=== PATIENT | female | born 1965 | race African-American/Black ===

== ENCOUNTER 2016-07-03 08:58 | Emergency (ER) ==
[2016-07-03 09:10] VITALS: BP 142/72
--- NOTE | 2016-07-03 09:57 | PROVIDER DOCUMENTATION ---
HPI-Abdominal Pain/GI Problem - General Source: patient - History of Present Illness-ABD Nature of Presenting Problems: Pt is 50 y/o F presents to the ED with rectal bleeding. Pt states bleeding has been present for one month intermittently, but today Pt states was bleeding like a period. Pt states blood with stool and without. Pt denies F. Pt states hx of hemorrhoids. Abdominal Pain Onset Location: denies: RUQ, LUQ, RLQ, LLQ, epigastric, periumbilical, suprapubic, generalized abdomen, flank, unknown Pain Radiation: reports: no radiation Quality of Pain: reports: none Onset/Duration: reports: other (1 mth) Timing: reports: still present, intermittent Activities at Onset: reports: light activity Exposure to sick contacts?: No Modifying Factors: improves with: nothing Associated Symptoms: denies: anxiety, arm pain, back/neck pain, chest pain, constipation, cough, diaphoresis, diarrhea, dizziness, EENT symptoms, fatigue, fever/chills, genitourinary problems, headaches, heartburn, joint pain, loss of appetite, malaise, muscle aches, sinus congestion/drainage, nausea, rash, seizure, shortness of breath, sensory/motor loss, pain with inspiration, swelling/mass in abdomen, syncope, vomiting, weakness, trouble walking Last BM: this morning Dark Stools Present?: reports: bright red blood Rectal Bleeding: reports: bleeding without stool, blood streaks on stool Rectal Pain: reports: none Emesis Description: reports: none Bruising or Bleeding Gums?: No Similar Symptoms Previously?: Yes Recently seen or treated by another doctor?: No <Terra Brady - Last Filed: 07/03/16 12:01> <Klaus Marte - Last Filed: 07/03/16 12:04> - General Chief Complaint: Rectal Bleeding Stated Complaint: RECTAL BLEEDING Time Seen by Provider: 07/03/16 09:55 Allergies/Adverse Reactions: Patient Allergies Allergy/AdvReac Type Severity Reaction Status Date / Time No Known Allergies Allergy Verified 07/03/16 09:09 Home Medications: Home Medication List Medication Instructions Recorded Confirmed Last Taken Type Amlodipine Besylate [Norvasc] 10 mg PO QPM #30 tablet 07/16/15 07/03/16 Unknown Rx Lisinopril/Hydrochlorothiazide 1 each PO QAM #30 tablet 07/16/15 07/03/16 Unknown Rx [Lisinopril-Hctz 20-12.5 mg Tab] Hydrocortisone Supp [Anusol-Hc 25 mg PA BID #14 supp 07/03/16 Unknown Rx Supp] Review of Systems - Adult - REVIEW OF SYSTEMS - ADULT Constitutional: denies: chills, fever Eyes: denies: blurred vision, double vision Ears, Nose, Mouth & Throat: denies: ear pain, nose pain, throat pain Cardiovascular: reports: irregular heart rate (nikolai). denies: chest pain, heart murmur Respiratory: denies: cough, shortness of breath, wheezing Gastrointestinal: reports: rectal bleeding. denies: abdominal pain, diarrhea, nausea, vomiting Genitourinary: denies: dysuria, hematuria Musculoskeletal: denies: bone pain, joint pain, neck pain Integumentary: denies: hives, itching Neurological: denies: dizziness/vertigo, headache/migraines Psychiatric: reports: no symptoms reported Endocrine: reports: no symptoms reported Hematologic/Lymphatic: reports: no symptoms reported Allergic/Immunologic: reports: no symptoms reported All Other Systems: Reviewed and Negative <Terra Brady - Last Filed: 07/03/16 12:01> Past History - Adult - PAST MEDICAL HISTORY-ADULT Review of Records: reports: Nursing Assessment Review, Medications Reviewed, Social history reviewed & non-contributory. Major Childhood Illnesses: reports: denies history Cardiovascular: reports: HTN Respiratory: reports: denies history Gastrointestinal: reports: GERD Obstetrical/Gynecological: reports: denies history Genitourinary: reports: denies history Musculoskeletal: reports: denies history Neurological: reports: denies history Psychiatric: reports: denies history Endocrine/Immune: reports: denies history Other Conditions: reports: denies history - PRIOR SURGERIES/PROCEDURES Surgical/Procedure History: reports: hysterectomy - PRIOR HOSPITALIZATIONS Prior Hospitalizations: reports: none - IMMUNIZATION STATUS Childhood Immunizations: See Nurse Assessment Flu Vaccine: See Nurse Assessment - FAMILY HISTORY Family History: reviewed, not pertinent - SOCIAL HISTORY Smoking: cigarettes, less than 1 pack/day Provider spent 3-5 mins advising pt. on dangers of tobacco.: Discussed manners to quit use, and f/u contacts for add'l counseling. Substance Use: denies Living Situation: family <Jose Antonio,Terra - Last Filed: 07/03/16 12:01> Physical Exam-General - PHYSICAL EXAM-ADULT Initial Vital Signs Reviewed: Yes - CONSTITUTIONAL General Appearance: appears well, alert, no apparent distress - EYES Eyes: PERRL/EOMI, pink conjunctivae, fundi clear, no AV nicking - HEAD, EARS, NOSE, MOUTH & THROAT HENMT: normocephalic/atraumatic, moist mucous membranes, normal ENT inspection, TMs normal, pharynx normal - NECK Neck: non-tender, full range of motion, supple, normal inspection - RESPIRATORY Respiratory: chest non-tender, lungs clear, normal breath sounds, no pleuratic chest pain, no respiratory distress - CARDIOVASCULAR Cardiovascular: normal peripheral pulses, no edema, no gallop, no JVD, no murmur , bradycardia - GASTROINTESTINAL (ABDOMEN) Abdominal Exam: normal bowel sounds, non tender, soft, no organomegaly, no pulsatile mass - GENITOURINARY Female Genitalia/Pelvic Exam: deferred Rectal Exam: normal rectal tone, blood streaked stool, hemorrhoids (external). negative: mass, tenderness - LYMPHATIC Lymphatic: no adenopathy - MUSCULOSKELETAL Back Exam: normal inspection, no CVA tenderness, no vertebral tenderness Extremity: normal range of motion, non-tender, normal gait, normal inspection, no pedal edema, no calf tenderness, normal capillary refill - SKIN Integumentary: normal color, normal turgor, warm/dry - NEUROLOGIC Neurologic: grossly normal - PSYCHIATRIC Psych/Mental Status: normal mood/affect, oriented x 3 <Terra Brady - Last Filed: 07/03/16 12:01> Progress - PLAN OF CARE/RESULTS Progress/Plan/Lab Results: Orders Category Date Time Status CBC WITH DIFF [HEME] Stat Lab 07/03/16 09:58 Ordered COMPREHENSIVE METABOLIC PANEL [CHEM] Stat Lab 07/03/16 09:58 Ordered OCCULT BLOOD SCREEN STOOL PL Stat Lab 07/03/16 10:02 Ordered UA [URINALYSIS DIPSTICK ONLY PL] [URINALYSIS] Stat Lab 07/03/16 09:58 Ordered Vital Signs - 24 hr 07/03/16 09:07 Temperature 97.2 F L Pulse Rate 59 L Respiratory 18 Rate Blood Pressure 142/72 O2 Sat by Pulse 100 Oximetry Laboratory Tests 07/03/16 07/03/16 07/03/16 09:52 09:52 10:12 WBC RBC Hgb Hct MCV MCH MCHC RDW Std Deviation Plt Count MPV Immature Gran % (Auto) Neut % (Auto) Lymph % (Auto) [place] % (Auto) Eos % (Auto) Baso % (Auto) Immature Gran # (Auto) Neut # (Auto) Lymph # (Auto) [place] # (Auto) Eos # (Auto) Baso # (Auto) Sodium 137 Potassium 3.8 Chloride 101 Carbon Dioxide 27 Anion Gap 10 BUN 13 Creatinine 0.7 Estimated GFR/1.73 m2 > 60 BUN/Creatinine Ratio 19 Glucose 96 Calculated Osmolality 274 Calcium 8.9 Total Bilirubin 0.20 AST 15 ALT 15 Alkaline Phosphatase 88 Total Protein 6.8 Albumin 4.3 Globulin 3.0 Albumin/Globulin Ratio 2.0 Urine Source VOIDED Urine Color YELLOW Urine Clarity CLEAR Urine pH 7.0 Ur Specific [place] 1.010 Urine Protein NEGATIVE Urine Ketones NEGATIVE Urine Blood NEGATIVE Urine Nitrite NEGATIVE Urine Bilirubin NEGATIVE Urine Urobilinogen NORMAL Urine WBC NEGATIVE Urine Glucose NEGATIVE Stool Occult Blood NEGATIVE 07/03/16 10:12 WBC 9.58 RBC 4.50 Hgb 12.2 Hct 36.3 L MCV 80.7 L MCH 27.1 MCHC 33.6 RDW Std Deviation 14.5 Plt Count 239 MPV 11.5 H Immature Gran % (Auto) 0.1 Neut % (Auto) 49.6 Lymph % (Auto) 41.9 [place] % (Auto) 7.1 Eos % (Auto) 1.1 Baso % (Auto) 0.2 Immature Gran # (Auto) 0.01 Neut # (Auto) 4.75 Lymph # (Auto) 4.01 H [place] # (Auto) 0.68 H Eos # (Auto) 0.11 Baso # (Auto) 0.02 Sodium Potassium Chloride Carbon Dioxide Anion Gap BUN Creatinine Estimated GFR/1.73 m2 BUN/Creatinine Ratio Glucose Calculated Osmolality Calcium Total Bilirubin AST ALT Alkaline Phosphatase Total Protein Albumin Globulin Albumin/Globulin Ratio Urine Source Urine Color Urine Clarity Urine pH Ur Specific [place] Urine Protein Urine Ketones Urine Blood Urine Nitrite Urine Bilirubin Urine Urobilinogen Urine WBC Urine Glucose Stool Occult Blood Orders Category Date Time Status CBC WITH DIFF [HEME] Stat Lab 07/03/16 10:12 Completed COMPREHENSIVE METABOLIC PANEL [CHEM] Stat Lab 07/03/16 10:12 Completed OCCULT BLOOD SCREEN STOOL PL Stat Lab 07/03/16 09:52 Completed UA [URINALYSIS DIPSTICK ONLY PL] [URINALYSIS] Stat Lab 07/03/16 09:52 Completed - CONSULTS/PCP/HOSPITALIST Notification #1 *Consult/PCP/Hospitalist*: Dr. Howe Time Discussed: 12:02 Reason/Comments: Dr. Marte consulted with Dr. Howe about PT. <Terra Brady - Last Filed: 07/03/16 12:01> Departure <Terra Brady - Last Filed: 07/03/16 12:01> - Departure Time of Disposition Order: 12:03 Certified Medical Emergency: Emergent <Klaus Marte - Last Filed: 07/03/16 12:04> - Departure DIAGNOSIS: Rectal bleeding Disposition: HOME 01 Condition: Stable Additional Instructions: ED Follow Up Instructions: You have been treated by a care provider in the Emergency Department. These instructions are being provided to you so you can have an understanding of how to care for yourself upon discharge. Upon discharge from the Emergency Department, you are responsible for making arrangements for follow-up care by a physician of your choice. Take all prescribed medications as directed. Return to the Emergency Department immediately for any new or worsening symptoms. You may call the Physician Referral phone number at [phone] to obtain a list of Physicians who are taking new patients. Prescriptions: Hydrocortisone Supp [Anusol-Hc Supp] 25 mg PA BID #14 supp Referrals: Bal Contreras MD [CONSULTING PHYSICIAN] - Jamari Lopes MD [Primary Care Provider] - Forms: Return to School/Parent Work Instructions: Hydrocortisone suppositories Attestation - Scribe Verification/Attestation Scribe:: Terra Brady Acting as Scribe for:: Klaus Marte Scribe documention review:: This chart was documented by a scribe and accurately reflects the service the provider performed and the decisions made by the provider. <Terra Brady - Last Filed: 07/03/16 12:01> Physician Attestation
[2016-07-03 10:08] LABS: URINE SOURCE VOIDED
[2016-07-03 10:15] LABS: OCCULT BLOOD 1 NEGATIVE (NEGATIVE)
[2016-07-03 10:19] LABS: MANUAL DIFF NEEDED? NO
[2016-07-03 10:21] LABS: COLOR YELLOW
[2016-07-03 10:22] LABS: BILIRUBIN URINE NEGATIVE (NEGATIVE); BLOOD URINE NEGATIVE (NEGATIVE); CLARITY CLEAR (CLEAR); GLUCOSE URINE NEGATIVE (NEGATIVE); LEUKOCYTES URINE NEGATIVE (NEGATIVE); NITRITE URINE NEGATIVE (NEGATIVE); PROTEIN URINE NEGATIVE (NEGATIVE); UROBILINOGEN URINE NORMAL
[2016-07-03 10:22] LABS: BASO% 0.2 % (0.0-0.8); EOS# 0.11 X1000 (0.0-0.7); EOS% 1.1 % (0.0-10.0); HEMATOCRIT 36.3 % (37.0-47.0); HEMOGLOBIN 12.2 g/dL (12.0-16.0); IMM GRAN# 0.01 X1000 (0.0-0.04); IMM GRAN% 0.1 % (0.0-0.5); LYMPH# 4.01 X1000 (1.2-3.4); LYMPH% 41.9 % (20.5-51.1); MCH 27.1 PG (27-31); MCHC 33.6 g/dL (33-37); MCV 80.7 FL (81-99); MONO# 0.68 X1000 (0.11-0.59); MONO% 7.1 % (1.7-9.3); MPV 11.5 FL (7.4-10.4); NEUT% 49.6 % (42.2-75.2); PLT 239 X1000 (130-400)
[2016-07-03 10:48] LABS: AGAP 10; ALBUMIN 4.3 g/dL (3.5-5.0); ALKALINE PHOSPHATASE 88 U/L (32-104); BUN 13 mg/dL (8-22); CALCIUM 8.9 mg/dL (8.8-10.2); CHLORIDE 101 mmol/L (98-107); COSMO 274; GOT 15 U/L (10-30); GPT 15 U/L (10-36); POTASSIUM 3.8 mmol/L (3.5-5.1); SODIUM 137 mmol/L (136-145); TCO2 27 mmol/L (25-35); TOTAL PROTEIN 6.8 g/dL (6.3-8.3)
== END 2016-07-03 12:11 | disposition home or self-care (01) ==
LOC: P.ED 08:58
DX: K62.5 Hemorrhage of anus and rectum (principal); K92.1 Melena; K64.4 Residual hemorrhoidal skin tags; R00.1 Bradycardia, unspecified; I10 Essential (primary) hypertension; Z79.899 Other long term (current) drug therapy; F17.210 Nicotine dependence, cigarettes, uncomplicated; Z71.6 Tobacco abuse counseling
CPT/HCPCS: 36415; 80053; 81003; 82270; 85025; 99283

== ENCOUNTER 2016-07-05 06:10 | Emergency (ER) ==
--- NOTE | 2016-07-05 06:47 | PROVIDER DOCUMENTATION ---
HPI-Abdominal Pain/GI Problem - General Chief Complaint: Rectal Bleeding Stated Complaint: RECTAL BLEEDING Time Seen by Provider: 07/05/16 06:31 Allergies/Adverse Reactions: Patient Allergies Allergy/AdvReac Type Severity Reaction Status Date / Time No Known Allergies Allergy Verified 07/03/16 09:09 Home Medications: Home Medication List Medication Instructions Recorded Confirmed Last Taken Type Amlodipine Besylate [Norvasc] 10 mg PO QPM #30 tablet 07/16/15 07/03/16 Unknown Rx Lisinopril/Hydrochlorothiazide 1 each PO QAM #30 tablet 07/16/15 07/03/16 Unknown Rx [Lisinopril-Hctz 20-12.5 mg Tab] Hydrocortisone Supp [Anusol-Hc 25 mg ME BID #14 supp 07/03/16 Unknown Rx Supp] Dibucaine 1% Ointment [Nupercainal] 30 gm .SEE ORDER TID #1 tube 07/05/16 Unknown Rx Pantoprazole [Protonix] 40 mg PO DAILY@0700 #30 tablet 07/05/16 Unknown Rx - History of Present Illness-ABD Nature of Presenting Problems: Pt was seen Wednesday at [place] and arrnagements made to see her doctor on Wednesday and a specialist on . However shee ahd BRB per rectum this morning so came to see us and didn't go to work. She is not light-headed or have and sxs but it just concerned and has a vague stomach tenderness but no N/V /D. Review of Systems - Adult - REVIEW OF SYSTEMS - ADULT Constitutional: denies: chills, fever Eyes: denies: discharge, decreased vision Ears, Nose, Mouth & Throat: denies: hearing loss, sinus problem, throat swelling Cardiovascular: denies: chest pain, irregular heart rate Respiratory: denies: chronic cough, shortness of breath Gastrointestinal: reports: abdominal pain. denies: hematemesis, constipation, diarrhea, nausea, vomiting Genitourinary: denies: dysuria, hematuria Musculoskeletal: denies: bone pain, joint pain, neck pain Integumentary: denies: hair loss, mole changes, skin sores/ulcer Neurological: denies: ataxia, numbness, syncope, tremors Psychiatric: reports: no symptoms reported Endocrine: denies: goiter, cold intolerance, heat intolerance Hematologic/Lymphatic: denies: low blood count, lymphedema Allergic/Immunologic: denies: eczema, frequent infections Past History - Adult - PAST MEDICAL HISTORY-ADULT Review of Records: reports: Nursing Assessment Review, Medications Reviewed Major Childhood Illnesses: reports: denies history Cardiovascular: reports: HTN Respiratory: reports: denies history Gastrointestinal: reports: GERD Obstetrical/Gynecological: reports: denies history Genitourinary: reports: denies history Musculoskeletal: reports: denies history Neurological: reports: denies history Psychiatric: reports: denies history Endocrine/Immune: reports: denies history Other Conditions: reports: denies history - PRIOR SURGERIES/PROCEDURES Surgical/Procedure History: reports: hysterectomy - PRIOR HOSPITALIZATIONS Prior Hospitalizations: reports: none - IMMUNIZATION STATUS Childhood Immunizations: See Nurse Assessment Flu Vaccine: See Nurse Assessment - FAMILY HISTORY Family History: reviewed, not pertinent Physical Exam-General - CONSTITUTIONAL General Appearance: appears well, no apparent distress - EYES Eyes: PERRL/EOMI, pink conjunctivae - HEAD, EARS, NOSE, MOUTH & THROAT HENMT: normocephalic/atraumatic, moist mucous membranes, normal ENT inspection - NECK Neck: non-tender, full range of motion, supple - RESPIRATORY Respiratory: chest non-tender, lungs clear, normal breath sounds, no pleuratic chest pain, no respiratory distress, no accessory muscle use - CARDIOVASCULAR Cardiovascular: normal peripheral pulses, regular rate, rhythm, no edema, no gallop, no JVD, no murmur - CHEST (BREASTS) Chest/Breast: no tenderness - GASTROINTESTINAL (ABDOMEN) Abdominal Exam: normal bowel sounds, non tender, soft, no organomegaly, no pulsatile mass - GENITOURINARY Rectal Exam: normal exam, normal rectal tone, blood streaked stool - LYMPHATIC Lymphatic: no adenopathy - MUSCULOSKELETAL Back Exam: normal inspection, no CVA tenderness Progress - PLAN OF CARE/RESULTS Progress/Plan/Lab Results: Laboratory Tests 07/05/16 07/05/16 06:51 06:51 WBC 6.91 RBC 4.47 Hgb 12.4 Hct 36.4 L MCV 81.4 MCH 27.7 MCHC 34.1 RDW Std Deviation 14.2 Plt Count 226 MPV 11.9 H Immature Gran % (Auto) 0.0 Neut % (Auto) 41.8 L Lymph % (Auto) 46.9 [place] % (Auto) 9.8 H Eos % (Auto) 1.2 Baso % (Auto) 0.3 Immature Gran # (Auto) 0.00 Neut # (Auto) 2.89 Lymph # (Auto) 3.24 [place] # (Auto) 0.68 H Eos # (Auto) 0.08 Baso # (Auto) 0.02 Sodium 143 Potassium 4.3 Chloride 105 Carbon Dioxide 25 Anion Gap 13 BUN 12 Creatinine 0.8 Estimated GFR/1.73 m2 > 60 BUN/Creatinine Ratio 15 Glucose 97 Calculated Osmolality 285 Calcium 8.7 L Total Bilirubin 0.31 AST 15 ALT 13 Alkaline Phosphatase 81 Total Protein 6.5 Albumin 4.0 Globulin 2.5 Albumin/Globulin Ratio 1.6 Orders Category Date Time Status CBC WITH ELECTRONIC DIFF [HEME] Stat Lab 07/05/16 06:51 Completed CMP [COMPREHENSIVE METABOLIC PANEL] [CHEM] Stat Lab 07/05/16 06:51 Completed Stool [OCCULT BLOOD SCREENING] [STOOL] Stat Lab 07/05/16 06:35 Completed Vital Signs Temp Pulse Resp BP Pulse Ox 07/05/16 06:16 97.7 F 71 18 136/81 100 No Known Allergies Allergy (Verified 07/03/16 09:09) Amlodipine Besylate [Norvasc] 10 mg PO QPM #30 tablet 07/16/15 Lisinopril/Hydrochlorothiazide [Lisinopril-Hctz 20-12.5 mg Tab] 1 each PO QAM # 30 tablet 07/16/15 Hydrocortisone Supp [Anusol-Hc Supp] 25 mg ME BID #14 supp 07/03/16 Laboratory 07/05/16 07/05/16 06:51 06:51 WBC 6.91 RBC 4.47 Hgb 12.4 Hct 36.4 L MCV 81.4 MCH 27.7 MCHC 34.1 RDW Std Deviation 14.2 Plt Count 226 MPV 11.9 H Immature Gran % (Auto) 0.0 Neut % (Auto) 41.8 L Lymph % (Auto) 46.9 [place] % (Auto) 9.8 H Eos % (Auto) 1.2 Baso % (Auto) 0.3 Immature Gran # (Auto) 0.00 Neut # (Auto) 2.89 Lymph # (Auto) 3.24 [place] # (Auto) 0.68 H Eos # (Auto) 0.08 Baso # (Auto) 0.02 Sodium 143 Potassium 4.3 Chloride 105 Carbon Dioxide 25 Anion Gap 13 BUN 12 Creatinine 0.8 Estimated GFR/1.73 m2 > 60 BUN/Creatinine Ratio 15 Glucose 97 Calculated Osmolality 285 Calcium 8.7 L Total Bilirubin 0.31 AST 15 ALT 13 Alkaline Phosphatase 81 Total Protein 6.5 Albumin 4.0 Globulin 2.5 Albumin/Globulin Ratio 1.6 - REASSESSMENT Reassessment #1 Time Reassessed: 07:50 Status: unchanged (Dr Ben CARPENTER will see her in the morning to prepare her for c olonoscopy on ) Departure - Departure Time of Disposition Order: 07:55 DIAGNOSIS: GI bleeding Qualifiers: GI bleed type/associated pathology: unspecified gastrointestinal hemorrhage type Qualified Code(s): K92.2 - Gastrointestinal hemorrhage, unspecified Disposition: HOME 01 Certified Medical Emergency: Emergent Condition: Stable Additional Instructions: See Dr Contreras on Wednesday morning in clinic ED Follow Up Instructions: You have been treated by a care provider in the Emergency Department. These instructions are being provided to you so you can have an understanding of how to care for yourself upon discharge. Upon discharge from the Emergency Department, you are responsible for making arrangements for follow-up care by a physician of your choice. Take all prescribed medications as directed. Return to the Emergency Department immediately for any new or worsening symptoms. You may call the Physician Referral phone number at [phone] to obtain a list of Physicians who are taking new patients. Prescriptions: Dibucaine 1% Ointment [Nupercainal] 30 gm .SEE ORDER TID #1 tube Pantoprazole [Protonix] 40 mg PO DAILY@0700 #30 tablet
[2016-07-05 07:13] LABS: MANUAL DIFF NEEDED? NO
[2016-07-05 07:16] LABS: BASO% 0.3 % (0.0-0.8); EOS# 0.08 X1000 (0.0-0.7); EOS% 1.2 % (0.0-10.0); HEMATOCRIT 36.4 % (37.0-47.0); HEMOGLOBIN 12.4 g/dL (12.0-16.0); LYMPH# 3.24 X1000 (1.2-3.4); LYMPH% 46.9 % (20.5-51.1); MCH 27.7 PG (27-31); MCHC 34.1 g/dL (33-37); MCV 81.4 FL (81-99); MONO# 0.68 X1000 (0.11-0.59); MONO% 9.8 % (1.7-9.3); MPV 11.9 FL (7.4-10.4); NEUT% 41.8 % (42.2-75.2); PLT 226 X1000 (130-400); RBC 4.47 XMIL (4.2-5.4)
[2016-07-05 07:32] LABS: AGAP 13; ALKALINE PHOSPHATASE 81 U/L (32-104); BUN 12 mg/dL (8-22); CALCIUM 8.7 mg/dL (8.8-10.2); CHLORIDE 105 mmol/L (98-107); COSMO 285; GOT 15 U/L (10-30); GPT 13 U/L (10-36); POTASSIUM 4.3 mmol/L (3.5-5.1); SODIUM 143 mmol/L (136-145); TCO2 25 mmol/L (25-35); TOTAL BILIRUBIN 0.31 mg/dL (0.20-1.00); TOTAL PROTEIN 6.5 g/dL (6.3-8.3)
[2016-07-05 08:26] VITALS: BP 167/93
== END 2016-07-05 08:05 | disposition home or self-care (01) ==
LOC: ED 06:10
DX: K92.2 Gastrointestinal hemorrhage, unspecified (principal); K62.5 Hemorrhage of anus and rectum; R10.819 Abdominal tenderness, unspecified site; I10 Essential (primary) hypertension; Z79.899 Other long term (current) drug therapy
CPT/HCPCS: 80053; 82270; 85025; 99282